=== PATIENT | male | born 1950 | race Caucasian/White ===

== ENCOUNTER 2017-06-01 08:37 | Emergency (ER) | payer OTHER ==
[~2017-06-01] VITALS: Ht 172.7 cm; Wt 77.2 kg
[~2017-06-01 08:37] MED LIST: GLIP-95 PO; METFORMIN PO
[2017-06-01 08:39] VITALS: Ht 172.7 cm; Wt 77.2 kg
[2017-06-01] MEDS ORDERED: CEPH-443 PO (08:55)
[2017-06-01] MEDS ORDERED: BACI28.34 TOP (08:55)
[2017-06-01] MEDS ORDERED: DIPHTH/TET/ACEL PERTUSS (ADULT) 0.5 ML VIAL IM* ONE (09:00)
--- NOTE | 2017-06-01 12:41 | ERD ---
ER Documentation Chief Complaint Chief Complaint right foot pain HPI 66-year-old male coming in complaining of a burn to the right ankle 6 days. Patient states that he is concerned there may be an underlying infection to the area. He has been cleaning site with soap and water and applying antibiotic ointment. Does not recall last tetanus shot but believes he is due. Patient denies any purulence or bleeding from the site. Denies any severe pain. States he is able to ambulate without difficulty. Denies medical problems. Allergy to penicillin. Surgical history appendectomy. ROS All systems reviewed and are negative except as per history of present illness. Medications Home Meds Active Scripts Bacitracin* (Bacitracin Zinc Oint*) 28.35 Gm Oint, 1 APPLIC TOP BID, #1 TUB APPLI TO Prov:MATT PERDOMO PA-C 06/01/17 Cephalexin* (Keflex*) 500 Mg Capsule, 500 MG PO QID for 7 Days, CAP Prov:MATT PERDOMO PA-C 06/01/17 Reported Medications Glipizide* (Glipizide*) 10 Mg Tablet, 10 MG PO DAILY, TAB 02/08/14 [Metformin] No Conflict Check, PO DAILY 02/08/14 Allergies Allergies: Coded Allergies: No Known Allergy (Unverified , 11/01/14) PMhx/Soc History of Surgery: Yes ([facility]O) Anesthesia Reaction: No Hx Neurological Disorder: No Hx Respiratory Disorders: No Hx Cardiac Disorders: No Hx Psychiatric Problems: No Hx Miscellaneous Medical Probl: Yes (DM) Hx Alcohol Use: No Hx Substance Use: No Hx Tobacco Use: No Smoking Status: Never smoker Physical Exam Vitals Vital Signs Date Time Temp Pulse Resp B/P Pulse Ox O2 Delivery O2 Flow Rate FiO2 06/01/17 08:39 98.0 72 18 133/66 98 Physical Exam GENERAL: The patient is well-appearing, well-nourished, in no acute distress CHEST: Clear to auscultation bilaterally. There are no rales, wheezes or rhonchi. HEART: Regular rate and rhythm. No murmurs, clicks, rubs or gallops. No S3 or S4. EXTREMITIES: Equal pulses bilaterally. There is no peripheral clubbing, cyanosis or edema. No focal swelling or erythema. Full range of motion. Grossly neurovascularly intact. NEUROLOGIC: Alert and oriented. Cranial nerves II through XII intact. Motor strength in all 4 extremities with 5 out of 5 strength. Sensation grossly intact. Normal speech and gait. Babinski negative. DTR 2+ throughout. SKIN: Wound noted to right lower extremity. No purulence. Mild surrounding erythema. Scab intact and no large laceration or open deep wound. Results 24 hrs Current Medications Medications (Trade) Dose Ordered Sig/Lawanda Route PRN Reason Start Time Stop Time Status Last Admin Dose Admin Diphtheria/ Tetanus/Acell Pertussis (Adacel) 0.5 ml ONCE ONCE IM* 06/01/17 09:00 06/01/17 09:01 DC 06/01/17 09:06 Procedures/MDM ER Course: TDap given MDM: 66-year-old male complaining of wound to right lower leg. Patient sustained a burn but I do not feel that there is indication for admission at this time. Wound appears to be healing within normal limits. There is some surrounding erythema so I will treat prophylactically with antibiotics however I have low suspicion for sepsis, or deep cellulitic infection. No foreign body seen. I have low suspicion for neurodeficit. Patient received a tetanus shot while in the ED. Patient is discharged with strict ER precautions. Patient is told to clean with soap and water but allow wound to breathe and remain open. Patient is told if symptoms change or worsen to return to the ER. All questions answered at discharge Departure Diagnosis: Primary Impression: Burn Condition: Stable Patient Instructions: Burn, Second Degree Referrals: [facility] YOU HAVE RECEIVED A MEDICAL SCREENING EXAM AND THE RESULTS INDICATE THAT YOU DO NOT HAVE A CONDITION THAT REQUIRES URGENT TREATMENT IN THE EMERGENCY DEPARTMENT. FURTHER EVALUATION AND TREATMENT OF YOUR CONDITION CAN WAIT UNTIL YOU ARE SEEN IN YOUR DOCTORS OFFICE WITHIN THE NEXT 1-2 DAYS. IT IS YOUR RESPONSIBILITY TO MAKE AN APPOINTMENT FOR FOLOW-UP CARE. IF YOU HAVE A PRIMARY DOCTOR --you should call your primary doctor and schedule an appointment IF YOU DO NOT HAVE A PRIMARY DOCTOR YOU CAN CALL OUR PHYSICIAN REFERRAL HOTLINE AT IF YOU CAN NOT AFFORD TO SEE A PHYSICIAN YOU CAN CHOSE FROM THE FOLLOWING [facility] [id number] [facility]. [facility] [address] [facility] [address] [facility]. [facility] [address] [facility]. [facility] [address] [facility]. [facility]. [address] Additional Instructions: FOLLOW UP WITH YOUR PRIMARY CARE PHYSICIAN TOMORROW.Return to this facility if you are not improving as expected. MATT PERDOMO PA-C Jun 01, 2017 12:41
== END 2017-06-01 09:09 | disposition home or self-care (01) ==
LOC: FTE 08:37
DX: T24.031A Burn of unspecified degree of right lower leg, initial encounter (principal); E11.9 Type 2 diabetes mellitus without complications; X19.XXXA Contact with other heat and hot substances, initial encounter; Z79.84 Long term (current) use of oral hypoglycemic drugs; Z23 Encounter for immunization
CPT/HCPCS: 90471; Z7502

== ENCOUNTER 2017-12-22 15:39 | Emergency (ER) | END 2017-12-22 17:36 | disposition home or self-care (01) ==